=== PATIENT | female | born 1975 | race African-American/Black ===

== ENCOUNTER 2017-01-13 17:15 | Emergency (ER) | payer OTHER ==
[~2017-01-13] VITALS: Ht 165.1 cm; Wt 65.8 kg
[~2017-01-13 17:15] MED LIST: ATENOLOL 25 MG25 M1 PO; ATENOLOL PO; BACTRIM DS TAB1 EACH PO; BENADRYL ALLERG25 MG PO; IRON325 M1 PO; MACROBID 100 M100 M1 PO; MEDROL DOSPAK21 TAB PO; MONISTAT 324 GM VG; PHENAZOPYRIDIN200 M2 PO; PYRIDIUM100 M1 PO; TAPAZOLE10 MG PO; WOMEN'S DAILY1 EAC1 PO
[2017-01-13 17:42] LABS: URINE BILIRUBIN NEGATIVE (Negative); URINE BLOOD NEGATIVE (Negative); URINE COLOR YELLOW; URINE GLUCOSE-RANDOM* NEGATIVE (Negative); URINE KETONES NEGATIVE (Negative); URINE LEUKOCYTES-REFLEX NEGATIVE (Negative); URINE PROTEIN (DIPSTICK) NEGATIVE (Negative); URINE UROBILINOGEN 0.2 E.U./dl (0.2-1.0)
[2017-01-13 18:56] VITALS: BP 116/78
[2017-01-15 14:12] LABS: CHLAMYDIA TRACHOMATIS-PCR Negative (Negative); NEISSERIA GONORRHEA-PCR Negative (Negative)
== END 2017-01-13 18:57 | disposition home or self-care (01) ==
LOC: ER 17:15
PROVIDERS: Physician Assistant
DX: N72 Inflammatory disease of cervix uteri (principal); Z20.2 Contact with and (suspected) exposure to infections with a predominantly sexual mode of transmission; E03.9 Hypothyroidism, unspecified; F10.99 Alcohol use, unspecified with unspecified alcohol-induced disorder; Z86.2 Personal history of diseases of the blood and blood-forming organs and certain disorders involving the immune mechanism